=== PATIENT | female | born 2000 | race African-American/Black ===

== ENCOUNTER 2023-12-10 10:55 | Emergency (ER) | payer MEDICAID ==
[~2023-12-10] VITALS: Ht 182.9 cm; Wt 65.7 kg
[2023-12-10 11:18] VITALS: BP 128/75; PULSE 78; RESP 16; TEMP 98.4; O2SAT 98
[2023-12-10] MEDS: KETOROLAC 15MG/ML VIAL IM ONE (14:16)
[2023-12-10] MEDS: IBUPROFEN 600MG TABLET PO ONE (14:16)
[2023-12-10 14:25] LABS: CLARITY URINE CLEAR (CLEAR); COLOR URINE YELLOW (YELLOW); GLUCOSE URINE NEGATIVE (NEGATIVE); KETONES URINE 2+ (NEGATIVE); LEUKOCYTE ESTERASE URINE NEGATIVE (NEGATIVE); NITRITE URINE NEGATIVE (NEGATIVE); OCCULT BLOOD URINE NEGATIVE (NEGATIVE); PH URINE 6.5 (4.5-8.0); PROTEIN URINE NEGATIVE (NEGATIVE); SPECIFIC GRAVITY URINE 1.013 (1.005-1.030); UROBILINOGEN URINE 0.2 E.U./dL (0.2-1.0)
[2023-12-10] MEDS ORDERED: LIDO700A15 TP (14:34)
[2023-12-10] MEDS ORDERED: NAPR-1176 MT (14:34)
== END 2023-12-10 14:47 | disposition home or self-care (01) ==
LOC: ER 10:55
DX: N64.4 Mastodynia (principal)
CPT/HCPCS: 81003; 81025; 76641; 99284; Z7610